=== PATIENT | male | born 1965 | race Caucasian/White ===

== ENCOUNTER 2021-05-25 12:12 | Emergency (ER) | payer BC ==
--- NOTE | 2021-05-25 13:52 | ERPHSYRPT ---
- History of Present Illness Time Seen by Provider: 05/25/21 13:35 Source: patient Exam Limitations: no limitations Patient Subjective Stated Complaint: Pt c/o of swelling and redness to his left lower leg Triage Nursing Assessment: Pt brought to the ER by his , singh wnl, rates pain to the lower left leg as 2/10, swelling to left foot and upper calf, lower calf discolored, type 1 diabetic, pulses normal, doesn't appear to be in any distress Physician History: Patient is a 56-year-old male presents to our ED for evaluation of left lower leg swelling and warmth. Patient concern for cellulitis. Patient is a type I diabetic for 47 years. Patient is from [place]. Patient called his primary care doctor who advised patient come to our ED for evaluation. Patient states he has been experiencing bilateral lower extremity swelling for over 2 years. However his left lower extremity is swollen which is unusual for him. Patient's left lower extremity has been swollen for the past several days. No chest pain or shortness of breath. No nausea vomiting or diaphoresis. Blood sugars have been well controlled. Patient has history of hypothyroidism. Patient is on Synthroid. He has been taking all medications as prescribed. Patient otherwise voices no other complaints or concerns at this time. Timing/Duration: day(s) Severity: moderate Modifying Factors: Improves With: nothing Associated Symptoms: denies symptoms Allergies/Adverse Reactions: No Known Drug Allergies Allergy (Verified 05/25/21 13:40) Home Medications: Aspirin EC 81 mg [Ecotrin 81 mg] 81 mg PO DAILY 05/25/21 [History] Atorvastatin Calcium [Lipitor] 80 mg PO DAILY 05/25/21 [History] Furosemide 40 mg [Lasix 40 MG] 40 mg PO DAILY 05/25/21 [History] Insulin Aspart [Novolog] 1 unit SQ UD 05/25/21 [History] Insulin Degludec [Tresiba Flextouch U-200] 60 units SQ DAILY 05/25/21 [History] Levothyroxine Sodium 150 Mcg [Synthroid 150 Mcg] 150 mcg PO DAILY 05/25/21 [History] Lisinopril/Hydrochlorothiazide [Lisinopril-Hctz 10-12.5 mg Tab] 1 each PO DAILY 05/25/21 [History] Metoprolol Succinate 25 mg Xl* [Toprol-Xl 25MG Tablets] 25 mg PO DAILY 05/25 [History] Montelukast Sodium 10 mg [Singulair 10 MG] 10 mg PO DAILY 05/25/21 [History] Potassium Chloride [Klor-Con M20] 20 meq PO DAILY 05/25/21 [History] Tamsulosin HCl 0.4 mg PO DAILY 05/25/21 [History] Testosterone Cypionate 1 amp IM UD 05/25/21 [History] Travel Risk - International Travel Have you traveled outside of the country in past 3 weeks: No (N) If Yes, where;: N - Coronavirus Screening Are you exhibiting any of the following symptoms?: No Close contact with a COVID-19 positive Pt in past 14-21 Days: No - Vaccine Status Have you recieved a Covid-19 vaccination: Yes [employer]: [employer] - Vaccination Dates Date of 2cond Vaccination (if applicable): 02/2021 - Review of Systems Constitutional: No Symptoms, No Fever, No Chills Eyes: No Symptoms Ears, Nose, & Throat: No Symptoms Respiratory: No Symptoms, No Cough, No Dyspnea Cardiac: No Symptoms, No Chest Pain, No Edema, No Syncope Abdominal/Gastrointestinal: No Symptoms, No Abdominal Pain, No Nausea, No Vomiting, No Diarrhea Genitourinary Symptoms: No Symptoms, No Dysuria Musculoskeletal: No Symptoms, No Back Pain, No Neck Pain Skin: No Symptoms, No Rash Neurological: No Symptoms, No Dizziness, No Focal Weakness, No Sensory Changes Psychological: No Symptoms Endocrine: No Symptoms Hematologic/Lymphatic: No Symptoms Immunological/Allergic: No Symptoms All Other Systems: Reviewed and Negative - Past Medical History Pertinent Past Medical History: Yes Cardiac History: Coronary Artery Disease, High Cholesterol, Peripheral Vascular Disease Endocrine Medical History: Diabetes Type I, Hypothyroidism - Past Surgical History Past Surgical History: Yes Cardiac: Cardiac Stent Other Surgical History: retinopathy surgery on eyes - Social History Smoking Status: Never smoker Exposure to second hand smoke: No Drug Use: none Patient Lives Alone: No - Nursing Vital Signs Nursing Vital Signs: Initial Vital Signs Temperature 97.3 F 05/25/21 13:28 Pulse Rate 61 05/25/21 13:28 Blood Pressure 107/48 05/25/21 13:28 O2 Sat by Pulse Oximetry 98 05/25/21 13:28 Pain Scale Pain Intensity 2 - Physical Exam General Appearance: no apparent distress, alert Eye Exam: PERRL/EOMI, eyes nml inspection Ears, Nose, Throat Exam: normal ENT inspection, TMs normal, pharynx normal, moist mucous membranes Neck Exam: normal inspection, non-tender, supple, full range of motion Respiratory Exam: normal breath sounds, lungs clear, No respiratory distress Cardiovascular Exam: regular rate/rhythm, normal heart sounds, normal peripheral pulses Gastrointestinal/Abdomen Exam: soft, normal bowel sounds, No tenderness, No mass Back Exam: normal inspection, normal range of motion, No CVA tenderness, No vertebral tenderness Extremity Exam: normal inspection, normal range of motion, pelvis stable, calf tenderness, swelling, other (Left lower extremity is warm to touch. Positive Homans' sign. Left lower extremity generating heat. No lymphangitis. No inguinal lymphadenopathy. Cap refill less than 2 seconds. Palpable PT DP pulse. Compartments are soft. There is bilateral lower extremity ankle swelling. Right calf is at ), No lacerations Neurologic Exam: alert, oriented x 3, cooperative, normal mood/affect, nml cerebellar function, nml station & gait, sensation nml, No motor deficits Skin Exam: normal color, warm, dry, No rash Lymphatic Exam: No adenopathy SpO2 Interpretation: normal SpO2: 98 O2 Delivery: Room Air - Course Nursing assessment & vital signs reviewed: Yes EKG Interpreted by Me: RATE (55), Sinus Rhythm, NORMAL AXIS, NORMAL INTERVALS - Radiology Exams Lower Leg X-ray Interpretation: Teleradiologist Report (Use soft tissue swelling/edema. No other bony articular or soft tissue abnormalities.) Ordered Tests: Active Orders 24 hr Category Date Time Status Racing Board Marker STAT Care 05/25/21 13:41 Active EKG-ER Only STAT Care 05/25/21 13:40 Active IV Insertion STAT Care 05/25/21 13:40 Active Pulse Oximetry (ED) STAT Care 05/25/21 13:40 Active LOWER LEG Stat Exams 05/25/21 13:42 Completed VENOUS UNILAT/LIMITED EXTREMIT [US] Stat Exams 05/25/21 13:41 Completed BMP Stat Lab 05/25/21 17:24 Completed CBC W DIFF Stat Lab 05/25/21 13:57 Completed CMP Stat Lab 05/25/21 13:57 Completed MAGNESIUM Stat Lab 05/25/21 13:57 Completed NT PRO BNP Stat Lab 05/25/21 13:57 Completed TROPONIN Q3H Lab 05/25/21 13:57 Completed TROPONIN Q3H Lab 05/25/21 16:33 Completed TROPONIN Q3H Lab 05/25/21 19:45 Ordered TROPONIN Q3H Lab 05/25/21 22:45 Ordered TROPONIN Q3H Lab 05/26/21 01:45 Ordered UA W/RFX UR CULTURE Stat Lab 05/25/21 13:40 Completed Medication Summary Discontinued Medications Generic Name Dose Route Start Last Admin Trade Name Frestephenie PRN Reason Stop Dose Admin Sodium Chloride 1,000 mls @ 999 mls/hr 05/25/21 15:32 05/25/21 17:05 Sodium Chloride 0.9% 1000 Ml IV 05/25/21 16:32 Infused .Q1H1M STA Infusion Sodium Chloride Confirm 05/25/21 15:38 Sodium Chloride 0.9% 1000 Ml Administered 05/25/21 15:39 Dose 1,000 mls @ ud .ROUTE .STK-MED ONE Clindamycin HCl/Dextrose 900 mg in 50 mls @ 100 mls/hr 05/25/21 15:42 05/25/21 16:27 Clindamycin-D5w 900 Mg/50 Ml IV 05/25/21 16:11 Infused STAT STA Infusion Clindamycin HCl/Dextrose Confirm 05/25/21 15:49 Clindamycin-D5w 900 Mg/50 Ml Administered 05/25/21 15:50 Dose 900 mg in 50 mls @ ud IV .STK-MED ONE Lab/Rad Data: Laboratory Result Diagrams 05/25/21 13:57 05/25/21 17:24 Laboratory Results 05/25/21 05/25/21 05/25/21 Range/Units 17:24 16:33 13:57 WBC (4.0-10.5) K/mm3 RBC (4.1-5.6) M/mm3 Hgb (12.5-18.0) gm/dl Hct (42-50) % MCV (78-100) fl MCH (26-32) pg MCHC (32-36) g/dl RDW (11.5-14.0) % Plt Count (150-450) K/mm3 MPV (7.5-11.0) fl Gran % (36.0-66.0) % Eos # (Auto) (0-0.5) Absolute Lymphs (auto) (1.0-4.6) Absolute Monos (auto) (0.0-1.3) Lymphocytes % (24.0-44.0) % Monocytes % (0.0-12.0) % Eosinophils % (0.00-5.0) % Basophils % (0.0-0.4) % Absolute Granulocytes (1.4-6.9) Basophils # (0-0.4) Sodium 137 (137-145) mmol/L Potassium 4.0 D (3.5-5.1) mmol/L Chloride 99 (98-107) mmol/L Carbon Dioxide 31 H (22-30) mmol/L Anion Gap 12.0 (5-15) MEQ/L BUN 25 H (9-20) mg/dL Creatinine 1.36 H (0.66-1.25) mg/dL Estimated GFR 58.0 ML/MIN Glucose 180 H (74-106) mg/dL Calcium 8.5 (8.4-10.2) mg/dL Magnesium (1.6-2.3) mg/dL Total Bilirubin (0.2-1.3) mg/dL AST (17-59) U/L ALT (0-50) U/L Alkaline Phosphatase (38-126) U/L Troponin I < 0.012 < 0.012 (0.000-0.034) ng/mL NT-Pro-B Natriuret Pep (0-900) pg/mL Serum Total Protein (6.3-8.2) g/dL Albumin (3.5-5.0) g/dL Urine Color (YELLOW) Urine Appearance (CLEAR) Urine pH (5-6) Ur Specific [place] (1.005-1.025) Urine Protein (Negative) Urine Ketones (NEGATIVE) Urine Blood (0-5) Farhan/ul Urine Nitrite (NEGATIVE) Urine Bilirubin (NEGATIVE) Urine Urobilinogen (0-1) mg/dL Ur Leukocyte Esterase (NEGATIVE) Urine WBC (Auto) (0-5) /HPF U Hyaline Cast (Auto) (0-2) /LPF Urine Culture Reflexed (NO) Urine Glucose (NEGATIVE) mg/dL 05/25/21 05/25/21 05/25/21 Range/Units 13:57 13:57 13:40 WBC 7.1 (4.0-10.5) K/mm3 RBC 5.14 (4.1-5.6) M/mm3 Hgb 14.3 (12.5-18.0) gm/dl Hct 45.9 (42-50) % MCV 89.3 (78-100) fl MCH 27.8 (26-32) pg MCHC 31.2 L (32-36) g/dl RDW 14.3 H (11.5-14.0) % Plt Count 160 (150-450) K/mm3 MPV 11.9 H (7.5-11.0) fl Gran % 64.7 (36.0-66.0) % Eos # (Auto) 0.52 H (0-0.5) Absolute Lymphs (auto) 1.26 (1.0-4.6) Absolute Monos (auto) 0.68 (0.0-1.3) Lymphocytes % 17.9 L (24.0-44.0) % Monocytes % 9.6 (0.0-12.0) % Eosinophils % 7.4 H (0.00-5.0) % Basophils % 0.4 (0.0-0.4) % Absolute Granulocytes 4.56 (1.4-6.9) Basophils # 0.03 (0-0.4) Sodium 136 L (137-145) mmol/L Potassium 5.2 H (3.5-5.1) mmol/L Chloride 97 L (98-107) mmol/L Carbon Dioxide 30 (22-30) mmol/L Anion Gap 14.1 (5-15) MEQ/L BUN 29 H (9-20) mg/dL Creatinine 1.46 H (0.66-1.25) mg/dL Estimated GFR 53.5 ML/MIN Glucose 262 H (74-106) mg/dL Calcium 9.2 (8.4-10.2) mg/dL Magnesium 2.3 (1.6-2.3) mg/dL Total Bilirubin 1.00 (0.2-1.3) mg/dL AST 31 (17-59) U/L ALT 23 (0-50) U/L Alkaline Phosphatase 98 (38-126) U/L Troponin I (0.000-0.034) ng/mL NT-Pro-B Natriuret Pep 164 (0-900) pg/mL Serum Total Protein 6.0 L (6.3-8.2) g/dL Albumin 4.0 (3.5-5.0) g/dL Urine Color STRAW (YELLOW) Urine Appearance CLEAR (CLEAR) Urine pH 5.0 (5-6) Ur Specific [place] 1.005 (1.005-1.025) Urine Protein NEGATIVE (Negative) Urine Ketones NEGATIVE (NEGATIVE) Urine Blood NEGATIVE (0-5) Farhan/ul Urine Nitrite NEGATIVE (NEGATIVE) Urine Bilirubin NEGATIVE (NEGATIVE) Urine Urobilinogen NEGATIVE (0-1) mg/dL Ur Leukocyte Esterase NEGATIVE (NEGATIVE) Urine WBC (Auto) 0-2 (0-5) /HPF U Hyaline Cast (Auto) 0-2 (0-2) /LPF Urine Culture Reflexed NO (NO) Urine Glucose >=500 (NEGATIVE) mg/dL - Progress Progress: improved Progress Note: Son negative for DVT. Left lower extremity x-ray reveals soft tissue swellin g/edema. No bony articular or soft tissue abnormalities. Physical exam consistent with cellulitis. 05/25/21 15:41 05/25/21 17:50 Physical exam repeated patient patient is comfortable. No change in physical exam at this time. Repeat chemistry was ordered as initial potassium was slightly elevated. Repeat potassium is 4.0. Will discharge home at this time. A prescription for clindamycin was forwarded to patient's pharmacy. Due to patient's kidney function Bactrim was not prescribed. Patient given a referral to Dr. Frederick. He does not have a local physician as patient is from [place]. Patient voiced no other complaints concerns at this time. He states he is ready for discharge. Counseled pt/family regarding: lab results, diagnosis, need for follow-up, rad results - Departure Departure Disposition: Home Clinical Impression: Hyperglycemia, Cellulitis Condition: Stable Critical Care Time: No Referrals: DOCTOR,NO FAMILY [Primary Care Provider] - ZAHIRA FREDERICK MD [ACTIVE STAFF] - Additional Instructions: Discharge/Care Plan KALPESH HERNANDEZ was seen on 05/25/21 in the Emergency Room. The patient was counseled regarding Diagnosis,Lab results, Imaging studies, need for follow up and when to return to the Emergency Room. Prescriptions given: Discharge Note I have spoken with the patient and/or caregivers. I have explained the patient's condition, diagnosis and treatment plan based on the information available to me at this time. I have answered the patient's and/or caregiver's questions and addressed any concerns. The patient and/or caregivers have as good understanding of the patient's diagnosis, condition and treatment plan as can be expected at this point. The vital signs have been stable. The patient's condition is stable and appropriate for discharge from the emergency department. The patient will pursue further outpatient evaluation with the primary care physician or other designated or consulting physician as outlined in the d ischarge instructions. The patient and/or caregivers are agreeable to this plan of care and follow-up instructions have been explained in detail. The patient and/or caregivers have received these instruction. The patient/and or caregivers are aware that any significant change in condition or worsening of symptoms should prompt an immediate return to this or the closest emergency department or call 911. Prescriptions: Clindamycin HCl 150 mg [Cleocin 150 mg Capsule] 2 cap PO QID 7 Days #56 capsule
--- NOTE | 2021-05-25 14:10 | XRAY ---
Indication: Pain. Comparison: None 2 portable views left lower leg limited as knee not completely included on AP view. Mild diffuse soft tissue swelling/edema. No other bony, articular, or soft tissue abnormalities.
[2021-05-25 14:11] LABS: Absolute Neutrophil Ct (ANC) 4.56 (1.4-6.9); BASOPHIL % 0.4 % (0.0-0.4); Basophil (Absolute #) 0.03 (0-0.4); Eosinophil % 7.4 % (0.00-5.0); Eosinophil (Absolute #) 0.52 (0-0.5); Hematocrit 45.9 % (42-50); Hemoglobin 14.3 gm/dl (12.5-18.0); Lymphocyte (Absolute #) 1.26 (1.0-4.6); Lymphocytes % 17.9 % (24.0-44.0); Mean Cell Volume 89.3 fl (78-100); Mean Corpuscular Hemoglobin 27.8 pg (26-32); Mean Corpuscular Hgb Concent. 31.2 g/dl (32-36); Mean Platelet Volume 11.9 fl (7.5-11.0); Monocyte (Absolute #) 0.68 (0.0-1.3); Monocytes % 9.6 % (0.0-12.0); Neutrophil % 64.7 % (36.0-66.0); Platelet Count 160 K/mm3 (150-450); Red Blood Count 5.14 M/mm3 (4.1-5.6); Red Cell Distribution Width 14.3 % (11.5-14.0); White Blood Count 7.1 K/mm3 (4.0-10.5)
[2021-05-25 14:26] LABS: Appearance CLEAR (CLEAR); Bilirubin NEGATIVE (NEGATIVE); Blood NEGATIVE Ery/ul (0-5); Glucose >=500 mg/dL (NEGATIVE); Hyaline Casts 0-2 /LPF (0-2); Ketones NEGATIVE (NEGATIVE); Leukocyte Esterase NEGATIVE (NEGATIVE); Nitrite NEGATIVE (NEGATIVE); Protein,Urine Dip NEGATIVE (Negative); Specific Gravity 1.005 (1.005-1.025); Urobilinogen NEGATIVE mg/dL (0-1); WBC 0-2 /HPF (0-5)
[2021-05-25 14:41] LABS: ANION GAP 14.1 MEQ/L (5-15); Calcium 9.2 mg/dL (8.4-10.2); Creatinine 1 1.46 mg/dL (0.66-1.25); EST GLOMERULAR FILTRATION RATE 53.5 ML/MIN; MAGNESIUM 2.3 mg/dL (1.6-2.3); Potassium 5.2 mmol/L (3.5-5.1)
--- NOTE | 2021-05-25 15:23 | XRAY ---
Indication: Pain. Two-dimensional sonogram and color Doppler imaging of the major venous vessels of the left leg performed. Comparison: None No thrombus seen in the examined deep venous vessels of the left leg including greater saphenous vein. Veins demonstrate normal compressibility. Venous waveforms are normal with and without augmentation. Impression: Left leg negative for DVT.
[2021-05-25] MEDS ORDERED: Sodium Chloride 0.9% 1000 ML 1,000 ML IV STA (15:32)
[2021-05-25] MEDS ORDERED: Sodium Chloride 0.9% 1000 ML 1,000 ML ONE (15:38)
[2021-05-25 15:40] VITALS: BP 99/55
[2021-05-25] MEDS ORDERED: CLINDAMYCIN-D5W 900 MG/50 ML*** 900 MG/50 ML BAG IV STA (15:42)
[2021-05-25] MEDS ORDERED: CLINDAMYCIN-D5W 900 MG/50 ML*** 900 MG/50 ML BAG IV ONE (15:49)
[2021-05-25 17:13] VITALS: PULSE 63
[2021-05-25 17:44] LABS: Calcium 8.5 mg/dL (8.4-10.2); Creatinine 1 1.36 mg/dL (0.66-1.25)
[2021-05-25 17:52] VITALS: O2SAT 98
== END 2021-05-25 18:14 | disposition home or self-care (01) ==
LOC: ED 12:12
DX: E10.65 Type 1 diabetes mellitus with hyperglycemia (principal); L03.116 Cellulitis of left lower limb; E03.9 Hypothyroidism, unspecified; M79.662 Pain in left lower leg; Z79.899 Other long term (current) drug therapy
CPT/HCPCS: 36000; 36415; 73590; 80048; 80053; 81001; 83735; 83880; 84484; 85025; 93005; 93041; 93971; 94760; 96360; 96365; 99284

== ENCOUNTER 2024-11-28 17:01 | Emergency (ER) | payer BC ==
[2024-11-28 17:18] VITALS: TEMP 97.4
--- NOTE | 2024-11-28 17:20 | ERPHSYRPT ---
- History of Present Illness Time Seen by Provider: 11/28/24 17:20 Source: patient, family Exam Limitations: no limitations Patient Subjective Stated Complaint: hypotension Triage Nursing Assessment: patient states sunday he started having a runny nose, fever, fatigue, diarrhea, vomiting x 3. he was [place] [facility] [place] and was referred here due to hypotension. Physician History: This is a 59-year-old white male patient who is overweight and arrives by private vehicle accompanied by his spouse. His primary care provider is Dr. Bradford. Patient states that 3 days ago he began having symptoms of runny nose, fatigue, shortness of breath, vomiting and diarrhea. He was seen at [facility] and found to be hypotensive with a systolic blood pressure in the 80s. He was sent to our facility for evaluation. Patient, despite having vomiting and diarrhea and not taking much oral intake, continued taking his hypertensive medication. Patient has a history of asthma/COPD, diabetes, hypothyroidism, peripheral vascular disease, hypertension, hyperlipidemia and coronary artery disease. He currently does not have chest pain or abdominal pain. His vital signs show a systolic blood pressure in the 80s at the time of my examination. His pulse is 87. He is afebrile. His respiratory rate is 16 and his room air oxygen saturation level is 92%. Timing/Duration: day(s) (3) Severity: moderate Associated Symptoms: vomiting, shortness of breath, weakness, other (Diarrhea), No chest pain Allergies/Adverse Reactions: No Known Drug Allergies Allergy (Verified 11/28/24 17:18) Home Medications: Aspirin EC 81 mg [Ecotrin 81 mg] 81 mg PO DAILY 05/25/21 [History] Atorvastatin Calcium [Lipitor] 80 mg PO DAILY 05/25/21 [History] Furosemide 40 mg [Lasix 40 MG] 40 mg PO DAILY 05/25/21 [History] Insulin Aspart [Novolog] 1 unit SQ UD 05/25/21 [History] Insulin Degludec [Tresiba Flextouch U-200] 50 units SQ DAILY 05/25/21 [History] Levothyroxine Sodium 150 Mcg [Synthroid 150 Mcg] 150 mcg PO DAILY 05/25/21 [History] Lisinopril/Hydrochlorothiazide [Lisinopril-Hctz 10-12.5 mg Tab] 1 each PO DAILY 05/25/21 [History] Metoprolol Succinate 25 mg Xl* [Toprol-Xl 25MG Tablets] 25 mg PO DAILY 05/25/21 [History] Montelukast Sodium 10 mg [Singulair 10 MG] 10 mg PO DAILY 05/25/21 [History] Tamsulosin HCl 0.4 mg PO DAILY 05/25/21 [History] Testosterone Cypionate 1 amp IM UD 05/25/21 [History] Dapagliflozin Propanediol [Farxiga] 5 mg PO DAILY 11/28/24 [History] Hx Influenza Vaccination/Date Given: No Hx Pneumococcal Vaccination/Date Given: No Travel Risk - International Travel Have you traveled outside of the country in past 3 weeks: No - Emerging Infectious Disease Symptoms: Diarrhea, Fever, Shortness of Breath, Vomitting Comment: emesis x3 in 3 days - Review of Systems Constitutional: Fatigue, Weakness Eyes: No Symptoms Ears, Nose, & Throat: No Symptoms Respiratory: Dyspnea, No Cough Cardiac: No Chest Pain Abdominal/Gastrointestinal: Nausea, Vomiting, Diarrhea, Appetite Changes, No Abdominal Pain Genitourinary Symptoms: No Symptoms Musculoskeletal: No Symptoms Skin: No Symptoms Neurological: No Symptoms Psychological: No Symptoms Endocrine: No Symptoms Hematologic/Lymphatic: No Symptoms Immunological/Allergic: No Symptoms All Other Systems: Reviewed and Negative - Past Medical History Pertinent Past Medical History: Yes Cardiac History: Coronary Artery Disease, High Cholesterol, Hypertension, Peripheral Vascular Disease Endocrine Medical History: Diabetes Type I, Hypothyroidism - Past Surgical History Past Surgical History: Yes Cardiac: Cardiac Stent Other Surgical History: retinopathy surgery on eyes - Social History Smoking Status: Never smoker Exposure to second hand smoke: No Drug Use: none Patient Lives Alone: No - Nursing Vital Signs Nursing Vital Signs: Initial Vital Signs Temperature 97.4 F 11/28/24 17:11 Pulse Rate 87 11/28/24 17:11 Respiratory Rate 16 11/28/24 17:11 Blood Pressure 80/49 11/28/24 17:11 O2 Sat by Pulse Oximetry 92 L 11/28/24 17:11 Pain Scale Pain Intensity 3 - Physical Exam General Appearance: mild distress, alert, anxiety, obese Eye Exam: PERRL/EOMI, eyes nml inspection Ears, Nose, Throat Exam: normal ENT inspection, dry mucous membranes Neck Exam: normal inspection, non-tender, supple, full range of motion Respiratory Exam: normal breath sounds, lungs clear, airway intact, No chest tenderness, No respiratory distress Cardiovascular Exam: regular rate/rhythm, normal heart sounds, normal peripheral pulses Gastrointestinal/Abdomen Exam: soft, normal bowel sounds, No tenderness Rectal Exam: not done Back Exam: normal inspection, normal range of motion, No CVA tenderness, No vertebral tenderness Extremity Exam: normal inspection, normal range of motion, pelvis stable Neurologic Exam: alert, oriented x 3, cooperative, toy designer II-XII nml as tested, nml cerebellar function, nml station & gait, sensation nml Skin Exam: normal color, warm, dry Lymphatic Exam: No adenopathy SpO2 Interpretation: borderline oxygenation SpO2: 92 O2 Delivery: Room Air - Course Nursing assessment & vital signs reviewed: Yes EKG Interpreted by Me: RATE (86), Sinus Rhythm, NORMAL AXIS, NORMAL INTERVALS, NORMAL QRS, NORMAL ST-T, Other (No acute ischemia on today's twelve-lead EKG. QTc is 447) Ordered Tests: Active Orders 24 hr Category Date Time Status EKG-ER Only STAT Care 11/28/24 17:21 Active IV Insertion STAT Care 11/28/24 17:21 Active Pulse Oximetry (ED) STAT Care 11/28/24 17:21 Active CHEST 1 VIEW (PORTABLE) Stat Exams 11/28/24 17:51 Taken AMYLASE Stat Lab 11/28/24 17:40 Completed BLOOD CULTURE Stat Lab 11/28/24 17:45 Received CBC W DIFF Stat Lab 11/28/24 17:40 Completed CMP Stat Lab 11/28/24 17:40 Completed D-DIMER QUANTITATIVE Stat Lab 11/28/24 18:12 Completed Lactic Acid Stat Lab 11/28/24 17:22 Completed Lactic Acid Stat Lab 11/28/24 19:57 Received MAGNESIUM Stat Lab 11/28/24 17:40 Completed MONO SCREEN Stat Lab 11/28/24 17:40 Completed Manual Differential NC Stat Lab 11/28/24 17:40 Completed NT PRO BNPII Stat Lab 11/28/24 17:40 Completed TROPONIN Q4H Lab 11/28/24 17:40 Completed TROPONIN Q4H Lab 11/28/24 20:10 Received TROPONIN Q4H Lab 11/29/24 01:30 Ordered UA W/RFX UR CULTURE Stat Lab 11/28/24 17:21 Ordered Respiratory Therapy Assessment DAILY RT 11/28/24 18:25 Active Medication Summary Generic Name Dose Route Start Last Admin Trade Name Gurwinder PRN Reason Stop Dose Admin Norepinephrine/Dextrose 8 mg in 250 mls @ 15 mls/hr 11/28/24 19:20 11/28/24 1 9:42 Norepinephrine 8 Mg/250 Ml-[id number] IV 12/28/24 19:19 8 mcg/min .[id number] PRN 15 mls/hr HYPOTENSION Administration Protocol 8 MCG/MIN Discontinued Medications Generic Name Dose Route Start Last Admin Trade Name Gurwinder PRN Reason Stop Dose Admin Albuterol/Ipratropium Confirm 11/28/24 18:19 Ipratropium/Albuterol Sulfate 3 Ml Ampul.Neb Administered 11/28/24 18:20 Dose 3 ml IH .STK-MED ONE Albuterol/Ipratropium 3 ml 11/28/24 18:25 11/28/24 18:26 Ipratropium/Albuterol Sulfate 3 Ml Ampul.Neb IH 11/28/24 18:26 3 ml STAT ONE Administration Sodium Chloride 1,000 mls @ 999 mls/hr 11/28/24 17:21 11/28/24 17:41 Sodium Chloride 0.9% 1000 Ml IV 11/28/24 18:21 999 mls/hr .Q1H1M STA Administration Sodium Chloride Confirm 11/28/24 17:28 Sodium Chloride 0.9% 1000 Ml Administered 11/28/24 17:29 Dose 1,000 mls @ ud .ROUTE .STK-MED ONE Sodium Chloride 1,000 mls @ 999 mls/hr 11/28/24 18:49 11/28/24 18:57 Sodium Chloride 0.9% 1000 Ml IV 11/28/24 19:49 999 mls/hr .Q1H1M STA Administration Sodium Chloride Confirm 11/28/24 18:55 Sodium Chloride 0.9% 1000 Ml Administered 11/28/24 18:56 Dose 1,000 mls @ ud .ROUTE .STK-MED ONE Ceftriaxone Sodium 1 gm in 100 mls @ 200 mls/hr 11/28/24 19:16 Rocephin 1 Gm / 100 Ml Nacl IV 11/28/24 19:45 STAT ONE Ondansetron HCl 4 mg 11/28/24 17:23 11/28/24 17:42 Ondansetron Hcl 4 Mg/2 Ml Vial IV 11/28/24 17:24 Not Given STAT ONE Lab/Rad Data: Laboratory Result Diagrams 11/28/24 17:40 11/28/24 17:40 Laboratory Results 11/28/24 11/28/24 11/28/24 Range/Units 18:12 17:50 17:40 WBC (4.23-9.07) x10^3/uL RBC (4.63-6.08) x10^6/uL Hgb (13.7-17.5) g/dL Hct (40.1-51.0) % MCV (79.0-92.2) fL MCH (25.7-32.2) pg MCHC (32.3-36.5) g/dL RDW (11.6-14.4) % Plt Count (163-337) x10^3/uL MPV (9.4-12.4) fL D-Dimer 0.95 H* (0.0-0.50) mg/L Sodium (135-145) mmol/L Potassium (3.5-5.1) mmol/L Chloride (98-107) mmol/L Carbon Dioxide (22-30) mmol/L Anion Gap (5-15) MEQ/L BUN (9-20) mg/dL Creatinine (0.66-1.25) mg/dL Estimated GFR ML/MIN Glucose (74-106) mg/dL Lactic Acid (0.4-2.0) Calcium (8.4-10.2) mg/dL Magnesium (1.6-2.3) mg/dL Total Bilirubin (0.2-1.3) mg/dL AST (17-59) U/L ALT (0-50) U/L Alkaline Phosphatase (38-126) U/L Troponin I (0.000-0.033) ng/mL NT-Pro-B Natriuret Pep (<300) pg/mL Serum Total Protein (6.3-8.2) g/dL Albumin (3.5-5.0) g/dL Amylase (30-110) U/L Monoscreen NEGATIVE (NEGATIVE) Influenza Type A Ag NEGATIVE (NEGATIVE) Influenza Type B Ag NEGATIVE (NEGATIVE) RSV (PCR) NEGATIVE (NEGATIVE) SARS-CoV-2 (PCR) NEGATIVE (NEGATIVE) 11/28/24 11/28/24 11/28/24 Range/Units 17:40 17:40 17:40 WBC 16.0 H (4.23-9.07) x10^3/uL RBC 6.18 H (4.63-6.08) x10^6/uL Hgb 16.4 (13.7-17.5) g/dL Hct 51.2 H (40.1-51.0) % MCV 82.8 (79.0-92.2) fL MCH 26.5 (25.7-32.2) pg MCHC 32.0 L (32.3-36.5) g/dL RDW 15.9 H (11.6-14.4) % Plt Count 150 L (163-337) x10^3/uL MPV 11.5 (9.4-12.4) fL D-Dimer (0.0-0.50) mg/L Sodium 132 L (135-145) mmol/L Potassium 3.4 L (3.5-5.1) mmol/L Chloride 95 L (98-107) mmol/L Carbon Dioxide 25 (22-30) mmol/L Anion Gap 15.0 (5-15) MEQ/L BUN 73 H (9-20) mg/dL Creatinine 2.89 H (0.66-1.25) mg/dL Estimated GFR 24.6 ML/MIN Glucose 237 H (74-106) mg/dL Lactic Acid (0.4-2.0) Calcium 8.4 (8.4-10.2) mg/dL Magnesium 2.2 (1.6-2.3) mg/dL Total Bilirubin 3.50 H (0.2-1.3) mg/dL AST 49 (17-59) U/L ALT 35 (0-50) U/L Alkaline Phosphatase 163 H (38-126) U/L Troponin I < 0.012 (0.000-0.033) ng/mL NT-Pro-B Natriuret Pep 915 (<300) pg/mL Serum Total Protein 6.1 L (6.3-8.2) g/dL Albumin 3.6 (3.5-5.0) g/dL Amylase 33 (30-110) U/L Monoscreen (NEGATIVE) Influenza Type A Ag (NEGATIVE) Influenza Type B Ag (NEGATIVE) RSV (PCR) (NEGATIVE) SARS-CoV-2 (PCR) (NEGATIVE) 11/28/24 Range/Units 17:22 WBC (4.23-9.07) x10^3/uL RBC (4.63-6.08) x10^6/uL Hgb (13.7-17.5) g/dL Hct (40.1-51.0) % MCV (79.0-92.2) fL MCH (25.7-32.2) pg MCHC (32.3-36.5) g/dL RDW (11.6-14.4) % Plt Count (163-337) x10^3/uL MPV (9.4-12.4) fL D-Dimer (0.0-0.50) mg/L Sodium (135-145) mmol/L Potassium (3.5-5.1) mmol/L Chloride (98-107) mmol/L Carbon Dioxide (22-30) mmol/L Anion Gap (5-15) MEQ/L BUN (9-20) mg/dL Creatinine (0.66-1.25) mg/dL Estimated GFR ML/MIN Glucose (74-106) mg/dL Lactic Acid 3.8 H (0.4-2.0) Calcium (8.4-10.2) mg/dL Magnesium (1.6-2.3) mg/dL Total Bilirubin (0.2-1.3) mg/dL AST (17-59) U/L ALT (0-50) U/L Alkaline Phosphatase (38-126) U/L Troponin I (0.000-0.033) ng/mL NT-Pro-B Natriuret Pep (<300) pg/mL Serum Total Protein (6.3-8.2) g/dL Albumin (3.5-5.0) g/dL Amylase (30-110) U/L Monoscreen (NEGATIVE) Influenza Type A Ag (NEGATIVE) Influenza Type B Ag (NEGATIVE) RSV (PCR) (NEGATIVE) SARS-CoV-2 (PCR) (NEGATIVE) - Progress Progress: improved, re-examined Progress Note: 11/28/24 18:14 My medical decision making and the assignment of moderate complexity to this patient's medical issue today is based on review of the patient's past medical history, review the patient's medication list, reviewed patient drug allergy list, history present illness and physical findings on examination. The workup in this patient includes placement of a intravenous line, infusion of normal saline solution, troponin level, D-dimer level, twelve-lead EKG, CBC, CMP, amylase, lipase, lactic acid level, blood cultures, viral swabs, chest x-ray. Differential diagnosis includes but is not limited to pneumonia, viral illness, pulmonary embolus, myocardial infarction, electrolyte abnormalities, dehydr ation, arrhythmia 11/28/24 20:24 I interpreted this patient's laboratory data results. Based on this laboratory data results, the patient has leukocytosis with a left shift, lactic acidemia, acute renal failure, elevated D-dimer. The preliminary chest x-ray was interpreted by me. Patient has a significant left side pneumonia. I spoke with [facility] emergency department physician Dr. Sarabia. I reviewed the patient history, presenting complaint, workup results, physical findings with him. He accepts this patient in transfer at 2019. 11/28/24 20:26 The emergency room physician at [facility] is aware of that the patient is on Levophed and I reviewed all the labs with him. Counseled pt/family regarding: lab results, diagnosis, rad results Medical Desision Making - Independent Historian Additional History obtained from: Spouse - Diagnostic Testing Diagnostic test were ordered, analyzed, and reviewed by me: Yes Radiological Interpretation: Interpreted by me, Teleradiologist Report - Risk of complications The pt has a high risk of morbidity or mortality based on: Decision regarding hospitilization or escalation of hosp level of care - Departure Departure Disposition: Transfer Clinical Impression: Hypotension, Acute renal failure, Leukocytosis, Lactic acidemia, Left lower lobe pneumonia, Sepsis Condition: Fair Critical Care Time: Yes Critical Care Time(excluding separately billable procedures): Critical 30-74 mins (60 minutes) Referrals: DARIUS BRADFORD [Primary Care Provider] - Follow up/PCP as directed
[2024-11-28] MEDS ORDERED: Sodium Chloride 0.9% 1000 ML 1,000 ML ONE ×2 (17:28→18:55)
[2024-11-28] MEDS: Sodium Chloride 0.9% 1000 ML 1,000 ML IV STA ×2 (17:41→18:57)
[2024-11-28] MEDS: Zofran 4 MG/2 ML VIAL IV ONE (17:42)
[2024-11-28 17:57] LABS: Hematocrit 51.2 % (40.1-51.0); Hemoglobin 16.4 g/dL (13.7-17.5); Mean Cell Volume 82.8 fL (79.0-92.2); Mean Corpuscular Hemoglobin 26.5 pg (25.7-32.2); Mean Platelet Volume 11.5 fL (9.4-12.4); Platelet Count 150 x10^3/uL (163-337); Red Blood Count 6.18 x10^6/uL (4.63-6.08); Red Cell Distribution Width 15.9 % (11.6-14.4)
[2024-11-28 18:14] LABS: ALBUMIN 3.6 g/dL (3.5-5.0); BILIRUBIN,TOTAL 3.5 mg/dL (0.2-1.3); Calcium 8.4 mg/dL (8.4-10.2); Creatinine 1 2.89 mg/dL (0.66-1.25); EST GLOMERULAR FILTRATION RATE 24.6 ML/MIN; MAGNESIUM 2.2 mg/dL (1.6-2.3); Potassium 3.4 mmol/L (3.5-5.1); Total Protein 6.1 g/dL (6.3-8.2)
[2024-11-28] MEDS ORDERED: DUONEB 0.5-3 MG/3 ml Neb IH ONE (18:19)
[2024-11-28 18:25] LABS: NT PRO BNPII 915 pg/mL (<300); TROPONIN < 0.012 ng/mL (0.000-0.033)
[2024-11-28] MEDS: DUONEB 0.5-3 MG/3 ml Neb IH ONE (18:26)
[2024-11-28 18:36] LABS: INFLUENZA A NEGATIVE (NEGATIVE); INFLUENZA B NEGATIVE (NEGATIVE); RESPIRATORY SYNCTIAL VIRUS NEGATIVE (NEGATIVE); SARS-CoV-2 Xpert Express NEGATIVE (NEGATIVE)
[2024-11-28] MEDS ORDERED: NOREPINEPHRINE 8 MG/250 ML-D5W 8 MG/250 ML PLAST..BAG IV ONE (19:41)
[2024-11-28] MEDS: NOREPINEPHRINE 8 MG/250 ML-D5W 8 MG/250 ML PLAST..BAG IV PRN (19:42)
[2024-11-28] MEDS ORDERED: ROCEPHIN 1 GM / 100 ML NaCl 1 GM/100 ML IVPB IV ONE (20:30)
[2024-11-28] MEDS: Sodium Chloride 0.9% 1000 ML 1,000 ML IV SCH (20:31)
[2024-11-28] MEDS: ROCEPHIN 1 GM / 100 ML NaCl 1 GM/100 ML IVPB IV ONE (20:31)
[2024-11-28 21:12] LABS: Appearance Clear (Clear); Bacteria None Seen /HPF (None Seen); Bilirubin Small (Negative); Blood Negative (Negative); Epithelial Cells Few /HPF (None Seen); Glucose, Urine >=1000 mg/dL (Negative); Ketones Negative (Negative); Leukocyte Esterase Negative (Negative); Nitrite Negative (Negative); Protein,Urine Dip Trace (Negative); RBC 0-2 /HPF (0-5); Specific Gravity >=1.030 (1.005-1.030); WBC 0-2 /HPF (0-5)
--- NOTE | 2024-11-28 21:35 | XRAY ---
Indication: Cough. Short of breath. Comparison: None Portable chest demonstrates diffuse left lung infiltrates/atelectasis with small effusion and minimal right base infiltrate/atelectasis. Heart not enlarged. Bony thorax intact with mild degenerative changes.
[2024-11-28 23:52] LABS: Lymphocytes 8 % (21.8-53.1); Monocyte 5 % (5.3-12.2); Neutrophils 87 % (34.0-67.9); Platelet Estimate NORMAL (NORMAL); Total Cells Counted 100
[2024-11-28 23:53] LABS: ANISOCYTOSIS 1+; Burr Cells 1+; Poikilocytosis 1+
[2024-11-29] MEDS ORDERED: Sodium Chloride 0.9% 1000 ML 1,000 ML ONE (02:39)
[2024-11-29 04:01] VITALS: RESP 19
[2024-11-29 04:04] VITALS: BP 124/66; PULSE 86; O2SAT 96
== END 2024-11-29 05:05 | disposition short-term general hospital (02) ==
LOC: ED 17:01
DX: A41.9 Sepsis, unspecified organism (principal); J18.9 Pneumonia, unspecified organism; R65.20 Severe sepsis without septic shock; N17.9 Acute kidney failure, unspecified; I95.9 Hypotension, unspecified; D72.829 Elevated white blood cell count, unspecified; E87.20 Acidosis, unspecified; R79.1 Abnormal coagulation profile; R53.83 Other fatigue; R06.02 Shortness of breath; R11.2 Nausea with vomiting, unspecified; R19.7 Diarrhea, unspecified; E10.9 Type 1 diabetes mellitus without complications; I10 Essential (primary) hypertension; E78.5 Hyperlipidemia, unspecified; Z79.4 Long term (current) use of insulin; Z79.84 Long term (current) use of oral hypoglycemic drugs; Z79.899 Other long term (current) drug therapy
CPT/HCPCS: 0241U; 36415; 71045; 80053; 81001; 82150; 83605; 83735; 83880; 84484; 85025; 85379; 86308; 87040; 93005; 94640; 94760; 96360; 96361; 96365; 96366; 96374; 96376; 99291; 96375; 99285; J0696; A9270-GY

== ENCOUNTER 2024-12-17 17:11 | Emergency (ER) | payer BC ==
[2024-12-17 17:36] VITALS: TEMP 97.6
[2024-12-17] MEDS ORDERED: Sodium Chloride 0.9% 500 ML 500 ML IV ONE (18:31)
--- NOTE | 2024-12-17 18:33 | ERPHSYRPT ---
- History of Present Illness Source: patient, family Exam Limitations: no limitations Patient Subjective Stated Complaint: "My blood pressure was low so they told me to come get it checked out." Triage Nursing Assessment: Pt presents to ER from outpatient infusion clinic w ith complaints of hypotension. Pt appears frail and weak. Recently was discharged from [facility] ICU after a 3 week stay for Sepsis/Pneumonia. Pt is receiving IV abx in outpatient setting to help continue his treatment from Sepsis. Pt is pale, warm, and dry. Respirations are slightly labored. Complains of shortness of breath. Denies pain. 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 Pt was very lethargic and weak upon arrival, nursing staff had to physically lift him from wheelchair to place him in ER bed. is at bedside. 3+ pitting edema to left leg. Lung sounds diminished throughout. States has had gross swelling to entire left side for the past few weeks and three chest tubes on left lung to drain fluid. Has been on Lasix. Hx Tetanus, Diphtheria Vaccination/Date Given: No Hx Influenza Vaccination/Date Given: No Hx Pneumococcal Vaccination/Date Given: No Immunizations Up to Date: No <JERRELL OTT - Last Filed: 12/17/24 18:45> <SUZETTE ANDREW - Last Filed: 12/17/24 23:38> - History of Present Illness Time Seen by Provider: 12/17/24 18:03 Physician History: 59-year-old female with multiple medical problems including coronary artery disease with stenting, congestive heart failure, paroxysmal atrial fibrillation not anticoagulated, hypertension, diabetes mellitus, chronic left lower extremity swelling, recent admission for sepsis pneumonia at [facility], discharged yesterday and today at infusion center patient was found to be lethargic/tired and upon checking blood pressure it was in 70s. Patient report he has been feeling dizzy and lightheaded with standing and feels as if he is going to pass out. Denies any chest pain or palpitations, does have shortness of breath which is there for quite some time and lately getting worse. Patient also has left-sided chest intubations done which were taken off few days ago. No fever or chills reported. (JERRELL OTT) Allergies/Adverse Reactions: No Known Drug Allergies Allergy (Verified 12/17/24 17:36) Home Medications: Aspirin EC 81 mg [Ecotrin 81 mg] 81 mg PO DAILY 05/25/21 [History] Atorvastatin Calcium [Lipitor] 80 mg PO DAILY 05/25/21 [History] Furosemide 40 mg [Lasix 40 MG] 40 mg PO BID 05/25/21 [History] Insulin Aspart [Novolog] 1 unit SQ UD 05/25/21 [History] Insulin Degludec [Tresiba Flextouch U-200] 50 units SQ DAILY 05/25/21 [History] Levothyroxine Sodium 150 Mcg [Synthroid 150 Mcg] 150 mcg PO DAILY 05/25/21 [History] Lisinopril/Hydrochlorothiazide [Lisinopril-Hctz 10-12.5 mg Tab] 1 each PO DAILY 05/25/21 [History] Metoprolol Succinate 25 mg Xl* [Toprol-Xl 25MG Tablets] 25 mg PO DAILY 05/25/21 [History] Montelukast Sodium 10 mg [Singulair 10 MG] 10 mg PO DAILY 05/25/21 [History] Tamsulosin HCl 0.4 mg PO DAILY 05/25/21 [History] Testosterone Cypionate 1 amp IM UD 05/25/21 [History] Dapagliflozin Propanediol [Farxiga] 5 mg PO DAILY 11/28/24 [History] Fluconazole 100 mg [Diflucan 100 MG] 100 mg PO DAILY 12/17/24 [History] Potassium Chloride [Klor-Con] 20 meq PO DAILY 12/17/24 [History] Travel Risk - International Travel Have you traveled outside of the country in past 3 weeks: No - Emerging Infectious Disease Are you exhibiting symptoms associated with any current EIDs: Yes Symptoms: Shortness of Breath Comment: emesis x3 in 3 days <JERRELL OTT - Last Filed: 12/17/24 18:45> - Review of Systems Constitutional: Fatigue, Weakness Eyes: No Symptoms Ears, Nose, & Throat: No Symptoms Respiratory: Cough, Dyspnea, Dyspnea on Exertion (SANZ) Cardiac: Edema Abdominal/Gastrointestinal: Vomiting Genitourinary Symptoms: No Symptoms Musculoskeletal: Arthralgias Skin: No Symptoms Neurological: No Symptoms Hematologic/Lymphatic: No Symptoms <JERRELL OTT - Last Filed: 12/17/24 18:45> - Past Medical History Pertinent Past Medical History: Yes Cardiac History: Coronary Artery Disease, High Cholesterol, Hypertension, Peripheral Vascular Disease Respiratory History: Pneumonia, Other Endocrine Medical History: Diabetes Type I, Hypothyroidism History: Dialysis Other Medical History: one dialysis treatment, sepsis - Past Surgical History Past Surgical History: Yes Neuro Surgical History: No Pertinent History Cardiac: Cardiac Stent Respiratory: Other Other Surgical History: retinopathy surgery on eyes, pulmoscopy chest tube placement - Social History Smoking Status: Never smoker Exposure to second hand smoke: No Drug Use: none Patient Lives Alone: No - Social Determinants of Health Will the patient participate in the screening: Yes Do you worry about a steady place to live?: No Do you have any problems with any of the following?: No known problems In the past 12 months,have you had to go without utilities?: No Transportation Issues: No Has anyone in your support network made you feel unsafe?: No Have you or anyone in your house had to go without enough: No <JERRELL OTT - Last Filed: 12/17/24 18:45> - Physical Exam General Appearance: no apparent distress, alert Eye Exam: PERRL/EOMI Ears, Nose, Throat Exam: hearing grossly normal, normal ENT inspection Neck Exam: normal inspection, non-tender, supple, full range of motion Respiratory Exam: diminished breath sounds (Left side), rhonchi Cardiovascular/Chest Exam: normal heart sounds, regular rate/rhythm, edema (Left lower extremity pitting) Abdominal/Gastrointestinal Exam: soft, normal bowel sounds, No tenderness Neurologic Exam: alert, oriented x 3, cooperative Skin Exam: normal color SpO2 Interpretation: hypoxic SpO2: 88 O2 Delivery: Room Air <JERRELL OTT - Last Filed: 12/17/24 18:45> - Nursing Vital Signs Nursing Vital Signs: Initial Vital Signs Temperature 97.6 F 12/17/24 17:26 Pulse Rate 74 12/17/24 17:26 Respiratory Rate 22 12/17/24 17:26 Blood Pressure 74/35 12/17/24 17:26 O2 Sat by Pulse Oximetry 95 12/17/24 17:26 Pain Scale Pain Intensity 0 - Course EKG Interpreted by Me: RATE (72), Sinus Rhythm, NORMAL AXIS, NORMAL INTERVALS, Non-specific ST Changes <TRU,JERRELL - Last Filed: 12/17/24 18:45> Ordered Tests: Active Orders 24 hr Category Date Time Status EKG-ER Only STAT Care 12/17/24 18:24 Active IV Insertion STAT Care 12/17/24 18:24 Active CHEST 1 VIEW (PORTABLE) Stat Exams 12/17/24 18:25 Taken BLOOD CULTURE Stat Lab 12/17/24 18:50 Received CBC W DIFF Stat Lab 12/17/24 18:40 Completed CMP Stat Lab 12/17/24 18:40 Completed Lactic Acid Stat Lab 12/17/24 18:24 Completed Lactic Acid Stat Lab 12/17/24 20:51 Received MAGNESIUM Stat Lab 12/17/24 18:40 Completed NT PRO BNPII Stat Lab 12/17/24 18:40 Completed POCT GLUCOSE Stat Lab 12/17/24 21:38 Completed TROPONIN Q4H Lab 12/17/24 18:40 Completed TROPONIN Q4H Lab 12/17/24 22:12 Completed TROPONIN Q4H Lab 12/18/24 02:30 Ordered UA W/RFX UR CULTURE Stat Lab 12/17/24 18:25 Completed Medication Summary Discontinued Medications Generic Name Dose Route Start Last Admin Trade Name Freq PRN Reason Stop Dose Admin Sodium Chloride 500 mls @ 500 mls/hr 12/17/24 18:25 12/17/24 23:16 Sodium Chloride 0.9% 500 Ml IV 12/17/24 19:24 Infused .Q1H ONE Infusion Sodium Chloride Confirm 12/17/24 18:31 Sodium Chloride 0.9% 500 Ml Administered 12/17/24 18:32 Dose 500 mls @ ud IV .STK-MED ONE Sodium Chloride 1,000 mls @ 999 mls/hr 12/17/24 21:39 12/17/24 21:46 Sodium Chloride 0.9% 1000 Ml IV 12/17/24 22:39 999 mls/hr .Q1H1M STA Administration Sodium Chloride Confirm 12/17/24 21:44 Sodium Chloride 0.9% 1000 Ml Administered 12/17/24 21:45 Dose 1,000 mls @ ud .ROUTE .STK-MED ONE Lab/Rad Data: Laboratory Result Diagrams 12/17/24 18:40 12/17/24 18:40 Laboratory Results 12/17/24 12/17/24 12/17/24 Range/Units 22:12 21:38 18:40 WBC (4.23-9.07) x10^3/uL RBC (4.63-6.08) x10^6/uL Hgb (13.7-17.5) g/dL Hct (40.1-51.0) % MCV (79.0-92.2) fL MCH (25.7-32.2) pg MCHC (32.3-36.5) g/dL RDW (11.6-14.4) % Plt Count (163-337) x10^3/uL MPV (9.4-12.4) fL Gran % (34.0-67.9) % Immature Gran % (Auto) (0.001-0.429) % Nucleat RBC Rel Count (0.00-0.2) % Eos # (Auto) (0.04-0.54) x10^3/uL Immature Gran # (Auto) (0.001-0.031) x10^3u/L Absolute Lymphs (auto) (1.32-3.57) x10^3/uL Absolute Monos (auto) (0.30-0.82) x10^3/uL Absolute Nucleated RBC (0.00-0.012) x10^3u/L Lymphocytes % (21.8-53.1) % Monocytes % (5.3-12.2) % Eosinophils % (0.8-7.0) % Basophils % (0.2-1.2) % Absolute Granulocytes (1.78-5.38) x10^3/uL Basophils # (0.01-0.08) x10^3/uL Sodium (135-145) mmol/L Potassium (3.5-5.1) mmol/L Chloride (98-107) mmol/L Carbon Dioxide (22-30) mmol/L Anion Gap (5-15) MEQ/L BUN (9-20) mg/dL Creatinine (0.66-1.25) mg/dL Estimated GFR ML/MIN Glucose (74-106) mg/dL POC Glucometer 222 H (74 to 106) mg/dL Lactic Acid (0.4-2.0) Calcium (8.4-10.2) mg/dL Magnesium (1.6-2.3) mg/dL Total Bilirubin (0.2-1.3) mg/dL AST (17-59) U/L ALT (0-50) U/L Alkaline Phosphatase (38-126) U/L Troponin I 0.020 (0.000-0.033) ng/mL NT-Pro-B Natriuret Pep 280 (<300) pg/mL Serum Total Protein (6.3-8.2) g/dL Albumin (3.5-5.0) g/dL Urine Color (Yellow) Urine Appearance (Clear) Urine pH (4.6-8.0) Ur Specific [place] (1.005-1.030) Urine Protein (Negative) Urine Glucose (UA) (Negative) mg/dL Urine Ketones (Negative) Urine Blood (Negative) Urine Nitrite (Negative) Urine Bilirubin (Negative) Urine Urobilinogen (0.2) mg/dL Ur Leukocyte Esterase (Negative) U Hyaline Cast (Auto) (0-2) /LPF Urine Microscopic RBC (0-5) /HPF Urine Microscopic WBC (0-5) /HPF Ur Epithelial Cells (None Seen) /HPF Urine Bacteria (None Seen) /HPF Urine Culture Reflexed (NO) 12/17/24 12/17/24 12/17/24 Range/Units 18:40 18:40 18:40 WBC 9.8 H (4.23-9.07) x10^3/uL RBC 2.78 L (4.63-6.08) x10^6/uL Hgb 8.2 L (13.7-17.5) g/dL Hct 24.9 L (40.1-51.0) % MCV 89.6 (79.0-92.2) fL MCH 29.5 (25.7-32.2) pg MCHC 32.9 (32.3-36.5) g/dL RDW 20.9 H (11.6-14.4) % Plt Count 234 (163-337) x10^3/uL MPV 10.5 (9.4-12.4) fL Gran % 74.2 H (34.0-67.9) % Immature Gran % (Auto) 3.0 H (0.001-0.429) % Nucleat RBC Rel Count 0.3 H (0.00-0.2) % Eos # (Auto) 0.04 (0.04-0.54) x10^3/uL Immature Gran # (Auto) 0.29 H (0.001-0.031) x10^3u/L Absolute Lymphs (auto) 0.88 L (1.32-3.57) x10^3/uL Absolute Monos (auto) 1.28 H (0.30-0.82) x10^3/uL Absolute Nucleated RBC 0.03 H (0.00-0.012) x10^3u/L Lymphocytes % 9.0 L (21.8-53.1) % Monocytes % 13.1 H (5.3-12.2) % Eosinophils % 0.4 L (0.8-7.0) % Basophils % 0.3 (0.2-1.2) % Absolute Granulocytes 7.25 H (1.78-5.38) x10^3/uL Basophils # 0.03 (0.01-0.08) x10^3/uL Sodium 126 L (135-145) mmol/L Potassium 4.0 (3.5-5.1) mmol/L Chloride 79 L (98-107) mmol/L Carbon Dioxide 34 H (22-30) mmol/L Anion Gap 17.0 H (5-15) MEQ/L BUN 73 H (9-20) mg/dL Creatinine 2.09 H (0.66-1.25) mg/dL Estimated GFR 36.2 ML/MIN Glucose 232 H (74-106) mg/dL POC Glucometer (74 to 106) mg/dL Lactic Acid (0.4-2.0) Calcium 8.5 (8.4-10.2) mg/dL Magnesium 2.9 H (1.6-2.3) mg/dL Total Bilirubin 2.40 H (0.2-1.3) mg/dL AST 63 H (17-59) U/L ALT 51 H (0-50) U/L Alkaline Phosphatase 162 H (38-126) U/L Troponin I 0.021 (0.000-0.033) ng/mL NT-Pro-B Natriuret Pep (<300) pg/mL Serum Total Protein 5.4 L (6.3-8.2) g/dL Albumin 3.6 (3.5-5.0) g/dL Urine Color (Yellow) Urine Appearance (Clear) Urine pH (4.6-8.0) Ur Specific [place] (1.005-1.030) Urine Protein (Negative) Urine Glucose (UA) (Negative) mg/dL Urine Ketones (Negative) Urine Blood (Negative) Urine Nitrite (Negative) Urine Bilirubin (Negative) Urine Urobilinogen (0.2) mg/dL Ur Leukocyte Esterase (Negative) U Hyaline Cast (Auto) (0-2) /LPF Urine Microscopic RBC (0-5) /HPF Urine Microscopic WBC (0-5) /HPF Ur Epithelial Cells (None Seen) /HPF Urine Bacteria (None Seen) /HPF Urine Culture Reflexed (NO) 12/17/24 12/17/24 Range/Units 18:25 18:24 WBC (4.23-9.07) x10^3/uL RBC (4.63-6.08) x10^6/uL Hgb (13.7-17.5) g/dL Hct (40.1-51.0) % MCV (79.0-92.2) fL MCH (25.7-32.2) pg MCHC (32.3-36.5) g/dL RDW (11.6-14.4) % Plt Count (163-337) x10^3/uL MPV (9.4-12.4) fL Gran % (34.0-67.9) % Immature Gran % (Auto) (0.001-0.429) % Nucleat RBC Rel Count (0.00-0.2) % Eos # (Auto) (0.04-0.54) x10^3/uL Immature Gran # (Auto) (0.001-0.031) x10^3u/L Absolute Lymphs (auto) (1.32-3.57) x10^3/uL Absolute Monos (auto) (0.30-0.82) x10^3/uL Absolute Nucleated RBC (0.00-0.012) x10^3u/L Lymphocytes % (21.8-53.1) % Monocytes % (5.3-12.2) % Eosinophils % (0.8-7.0) % Basophils % (0.2-1.2) % Absolute Granulocytes (1.78-5.38) x10^3/uL Basophils # (0.01-0.08) x10^3/uL Sodium (135-145) mmol/L Potassium (3.5-5.1) mmol/L Chloride (98-107) mmol/L Carbon Dioxide (22-30) mmol/L Anion Gap (5-15) MEQ/L BUN (9-20) mg/dL Creatinine (0.66-1.25) mg/dL Estimated GFR ML/MIN Glucose (74-106) mg/dL POC Glucometer (74 to 106) mg/dL Lactic Acid 2.3 H (0.4-2.0) Calcium (8.4-10.2) mg/dL Magnesium (1.6-2.3) mg/dL Total Bilirubin (0.2-1.3) mg/dL AST (17-59) U/L ALT (0-50) U/L Alkaline Phosphatase (38-126) U/L Troponin I (0.000-0.033) ng/mL NT-Pro-B Natriuret Pep (<300) pg/mL Serum Total Protein (6.3-8.2) g/dL Albumin (3.5-5.0) g/dL Urine Color Yellow (Yellow) Urine Appearance Clear (Clear) Urine pH 6.5 (4.6-8.0) Ur Specific [place] 1.015 (1.005-1.030) Urine Protein Negative (Negative) Urine Glucose (UA) >=1000 A (Negative) mg/dL Urine Ketones Negative (Negative) Urine Blood Negative (Negative) Urine Nitrite Negative (Negative) Urine Bilirubin Negative (Negative) Urine Urobilinogen 1.0 A (0.2) mg/dL Ur Leukocyte Esterase Negative (Negative) U Hyaline Cast (Auto) 11-20 (0-2) /LPF Urine Microscopic RBC 3-5 (0-5) /HPF Urine Microscopic WBC 0-2 (0-5) /HPF Ur Epithelial Cells None Seen (None Seen) /HPF Urine Bacteria None Seen (None Seen) /HPF Urine Culture Reflexed NO (NO) <JERRELL OTT - Last Filed: 12/17/24 18:45> - Progress Progress: improved, re-examined Air Movement: fair Blood Culture(s) Obtained: Yes Antibiotics given: No Counseled pt/family regarding: lab results, diagnosis, need for follow-up, rad results <SUZETTE ANDREW - Last Filed: 12/17/24 23:38> - Progress Progress Note: 12/17/24 18:57 59-year-old is evaluated in the ER for worsening generalized weakness fatigue tiredness along with shortness of breath for which patient was admitted with pneumonia and sepsis needing left-sided chest intubations. Patient blood pressure is in 70s. He is not in any distress. Broad workup is ordered, will give a 500 cc bolus of normal saline and reevaluate as patient has history of CHF and do not want him to be fluid overloaded. Workup is pending, care is transferred to Dr. Andrew at end of my shift for reevaluation and final disposition. (JERRELL OTT) 12/17/24 23:35 I interpreted the patient's laboratory data results. The laboratory data results show patient with anemia, hyponatremia, lactic acidemia, acute renal failure I interpreted the patient's preliminary chest x-ray report. My interpretation is right lower lobe infiltrate and left lung field fluid versus infiltrate. I spoke with [facility] transfer center. I reviewed the patient history, presenting complaint, laboratory workup with results and this patient was auto accepted on behalf of of Dr. Todd Joshua at [id number] (SUZETTE ANDREW) Medical Desision Making - Discussion of managment Care discussed with:: specialist (Patient auto accepted for transfer at [facility]) Reviewed:: Test results, Need for additional workup Will see patient: in hospital - Diagnostic Testing Diagnostic test were ordered, analyzed, and reviewed by me: Yes Radiological Interpretation: Interpreted by me, Teleradiologist Report - Risk of complications The pt has a high risk of morbidity or mortality based on: Decision regarding hospitilization or escalation of hosp level of care <SUZETTE ANDREW - Last Filed: 12/17/24 23:38> <JERRELL OTT - Last Filed: 12/17/24 18:45> - Departure Departure Disposition: Transfer Critical Care Time: Yes Critical Care Time(excluding separately billable procedures): Critical 30-74 mins (55) <SUZETTE ANDREW - Last Filed: 12/17/24 23:38> - Departure Clinical Impression: Anemia, Hypotension, Vomiting, Dizziness, Acute on chronic renal failure, Lactic acidemia, Hyponatremia Condition: Fair Referrals: DARIUS ROWE [Primary Care Provider] - Follow up/PCP as directed
[2024-12-17] MEDS: Sodium Chloride 0.9% 500 ML 500 ML IV ONE (18:36)
[2024-12-17 18:55] LABS: Absolute Neutrophil Ct (ANC) 7.25 x10^3/uL (1.78-5.38); BASOPHIL % 0.3 % (0.2-1.2); Basophil (Absolute #) 0.03 x10^3/uL (0.01-0.08); Eosinophil % 0.4 % (0.8-7.0); Eosinophil (Absolute #) 0.04 x10^3/uL (0.04-0.54); Hematocrit 24.9 % (40.1-51.0); Hemoglobin 8.2 g/dL (13.7-17.5); IMMATURE GRAN # 0.29 x10^3u/L (0.001-0.031); Lymphocyte (Absolute #) 0.88 x10^3/uL (1.32-3.57); Mean Cell Volume 89.6 fL (79.0-92.2); Mean Corpuscular Hemoglobin 29.5 pg (25.7-32.2); Mean Corpuscular Hgb Concent. 32.9 g/dL (32.3-36.5); Mean Platelet Volume 10.5 fL (9.4-12.4); Monocyte (Absolute #) 1.28 x10^3/uL (0.30-0.82); Monocytes % 13.1 % (5.3-12.2); NUCLEATED RBC # 0.03 x10^3u/L (0.00-0.012); NUCLEATED RBC % 0.3 % (0.00-0.2); Neutrophil % 74.2 % (34.0-67.9); Platelet Count 234 x10^3/uL (163-337); Red Blood Count 2.78 x10^6/uL (4.63-6.08); Red Cell Distribution Width 20.9 % (11.6-14.4); White Blood Count 9.8 x10^3/uL (4.23-9.07)
[2024-12-17 19:30] LABS: ALBUMIN 3.6 g/dL (3.5-5.0); BILIRUBIN,TOTAL 2.4 mg/dL (0.2-1.3); Calcium 8.5 mg/dL (8.4-10.2); Creatinine 1 2.09 mg/dL (0.66-1.25); EST GLOMERULAR FILTRATION RATE 36.2 ML/MIN; MAGNESIUM 2.9 mg/dL (1.6-2.3); Total Protein 5.4 g/dL (6.3-8.2)
[2024-12-17 20:59] LABS: Appearance Clear (Clear); Bacteria None Seen /HPF (None Seen); Bilirubin Negative (Negative); Blood Negative (Negative); Epithelial Cells None Seen /HPF (None Seen); Glucose, Urine >=1000 mg/dL (Negative); Ketones Negative (Negative); Leukocyte Esterase Negative (Negative); Nitrite Negative (Negative); Ph 6.5 (4.6-8.0); Protein,Urine Dip Negative (Negative); Specific Gravity 1.015 (1.005-1.030); WBC 0-2 /HPF (0-5)
[2024-12-17] MEDS ORDERED: Sodium Chloride 0.9% 1000 ML 1,000 ML ONE (21:44)
[2024-12-17] MEDS: Sodium Chloride 0.9% 1000 ML 1,000 ML IV STA (21:46)
[2024-12-18] MEDS ORDERED: Sodium Chloride 0.9% 500 ML 500 ML IV ONE (01:10)
[2024-12-18] MEDS: Sodium Chloride 0.9% 500 ML 500 ML IV SCH (01:11)
[2024-12-18 04:27] VITALS: BP 93/53; PULSE 76; RESP 17; O2SAT 99
--- NOTE | 2024-12-18 08:33 | XRAY ---
Indication: Short of breath. Comparison: November 28, 2024. Portable chest demonstrates new lateral left chest wall cutaneous hugo. Little to no improvement in the diffuse left lung infiltrate/atelectasis/effusion. Stable minimal right base infiltrate/atelectasis. No pneumothorax. Heart not enlarged. No new cardiopulmonary abnormalities.
== END 2024-12-18 04:30 | disposition short-term general hospital (02) ==
LOC: ED 17:11
DX: D64.9 Anemia, unspecified (principal); I95.9 Hypotension, unspecified; R11.2 Nausea with vomiting, unspecified; R42 Dizziness and giddiness; N17.9 Acute kidney failure, unspecified; E10.22 Type 1 diabetes mellitus with diabetic chronic kidney disease; I13.0 Hypertensive heart and chronic kidney disease with heart failure and stage 1 through stage 4 chronic kidney disease, or unspecified chronic kidney disease; N18.9 Chronic kidney disease, unspecified; E87.20 Acidosis, unspecified; E87.1 Hypo-osmolality and hyponatremia; I50.9 Heart failure, unspecified; E78.5 Hyperlipidemia, unspecified; Z79.899 Other long term (current) drug therapy
CPT/HCPCS: 36415; 71045; 80053; 81001; 82947; 83605; 83735; 83880; 84484; 85025; 87040; 93005; 96360; 96374; 99285; 99291